=== PATIENT | female | born 1950 | race Caucasian/White ===

== ENCOUNTER → 2017-05-09 | Outpatient (CLI) | payer MEDICARE ==
--- NOTE | 2017-05-09 15:19 | Diagnostic Imaging Report ---
PROCEDURE: US Gallbladder. TECHNIQUE: Multiple Real-time grayscale images were obtained over the right upper quadrant in various projections. INDICATION: Right upper quadrant pain. COMPARISON: There are no prior studies available for comparison. FINDINGS: The liver does not appear to be enlarged. There is no focal mass involving the liver and the biliary tree is not abnormally dilated. There is no evidence for cholelithiasis or acute cholecystitis and the common bile duct is not dilated. The pancreas and right kidney are within normal limits. There is no mass or free fluid collection in the right upper quadrant. IMPRESSION: 1. There is no evidence for an acute abnormality in the right upper quadrant. 2. If clinical concern regarding an underlying abnormality of the gallbladder persists and further imaging is desired, then a Nuclear Medicine hepatobiliary scan would be recommended for further study. Dictated by: Dictated on workstation # [id number]
== END ==
LOC: RAD 13:48
PROVIDERS: ATTEND Nurse Practitioner Family
DX: R10.11 Right upper quadrant pain (principal)
CPT/HCPCS: 76705

== ENCOUNTER 2019-05-20 16:31 | Emergency (ER) | payer MEDICARE ==
[~2019-05-20] VITALS: Ht 155 cm; Wt 50.0 kg
--- NOTE | 2019-05-20 16:55 | ED Cough/URI ---
General Chief Complaint: Respiratory Problems Stated Complaint: SOA,PRESSURE IN L LARM AND HAND Source: patient Exam Limitations: no limitations History of Present Illness Date Seen by Provider: May 20, 2019 Time Seen by Provider: 16:54 Initial Comments To ER with reports of shortness of breath for about a week worse than usual today. She also has some pressure in the left forearm. No pressure in her chest. No fever no chills no cough no nausea and no diarrhea no rhinorrhea. Timing/Duration: week, getting worse Severity/Quality: moderate Associated Symptoms: cough Allergies and Home Medications Allergies Coded Allergies: No Known Drug Allergies (Unverified , 05/20/19) Patient Home Medication List Home Medication List Reviewed: Yes Review of Systems Review of Systems Constitutional: see HPI; No chills, No fever EENTM: see HPI Respiratory: see HPI, short of breath Cardiovascular: no symptoms reported; No chest pain, No edema, No Hx of Intervention, No palpitations Genitourinary: no symptoms reported Musculoskeletal: no symptoms reported, other (pressure sensation begins left forearm dorsally and extends distally to the mid hand) Skin: no symptoms reported Psychiatric/Neurological: No Symptoms Reported Hematologic/Lymphatic: No Symptoms Reported Past Jyygevh-Pljoxi-[id number] Hx Patient Social History Recent Foreign Travel: No Contact w/Someone Who Travel: No Physical Exam Vital Signs - First Documented 05/20/19 16:48 Temp 36.9 Pulse 73 Resp 20 B/P (MAP) 155/80 (105) Pulse Ox 100 O2 Delivery Room Air Capillary Refill : Height: '" Weight: lbs. oz. kg; BMI Method: General Appearance: WD/WN, no apparent distress Eyes: Bilateral Eye Normal Inspection, Bilateral Eye PERRL, Bilateral Eye EOMI HEENT: PERRL/EOMI, normal ENT inspection Respiratory: lungs clear, normal breath sounds, no respiratory distress, no accessory muscle use Cardiovascular: regular rate, rhythm, no murmur Gastrointestinal: normal bowel sounds, non tender, soft Neurologic/Psychiatric: alert, normal mood/affect, oriented x 3 Skin: warm/dry Progress/Results/Core Measures Suspected Sepsis SIRS Temperature: Pulse: Respiratory Rate: Laboratory Tests 05/20/19 17:30: White Blood Count 5.0 Blood Pressure / Mean: Laboratory Tests 05/20/19 17:30: Creatinine 0.64, INR Comment 0.9, Platelet Count 240, Total Bilirubin 0.4 Results/Orders Lab Results Laboratory Tests Test 05/20/19 17:29 05/20/19 17:30 05/20/19 19:08 Range/Units Urine Color YELLOW Urine Clarity CLEAR Urine pH 7.0 5-9 Urine Specific Arabi <=1.005 1.016-1.022 Urine Protein NEGATIVE NEGATIVE Urine Glucose (UA) NEGATIVE NEGATIVE Urine Ketones NEGATIVE NEGATIVE Urine Nitrite NEGATIVE NEGATIVE Urine Bilirubin NEGATIVE NEGATIVE Urine Urobilinogen 0.2 < = 1.0 MG/DL Urine Leukocyte Esterase TRACE H NEGATIVE Urine RBC (Auto) NEGATIVE NEGATIVE Urine RBC NONE /HPF Urine WBC 0-2 /HPF Urine Squamous Epithelial Cells 0-2 /HPF Urine Crystals NONE /LPF Urine Bacteria MODERATE H /HPF Urine Casts NONE /LPF Urine Mucus NEGATIVE /LPF Urine Culture Indicated YES White Blood Count 5.0 4.3-11.0 10^3/uL Red Blood Count 3.87 L 4.35-5.85 10^6/uL Hemoglobin 13.7 11.5-16.0 G/DL Hematocrit 40 35-52 % Mean Corpuscular Volume 104 H 80-99 FL Mean Corpuscular Hemoglobin 35 H 25-34 PG Mean Corpuscular Hemoglobin Concent 34 32-36 G/DL Red Cell Distribution Width 12.7 10.0-14.5 % Platelet Count 240 130-400 10^3/uL Mean Platelet Volume 9.4 7.4-10.4 FL Neutrophils (%) (Auto) 54 42-75 % Lymphocytes (%) (Auto) 33 12-44 % Monocytes (%) (Auto) 11 0-12 % Eosinophils (%) (Auto) 1 0-10 % Basophils (%) (Auto) 0 0-10 % Neutrophils # (Auto) 2.7 1.8-7.8 X 10^3 Lymphocytes # (Auto) 1.7 1.0-4.0 X 10^3 Monocytes # (Auto) 0.6 0.0-1.0 X 10^3 Eosinophils # (Auto) 0.1 0.0-0.3 10^3/uL Basophils # (Auto) 0.0 0.0-0.1 10^3/uL Prothrombin Time 12.6 12.2-14.7 SEC INR Comment 0.9 0.8-1.4 Activated Partial Thromboplast Time 28 24-35 SEC Sodium Level 138 135-145 MMOL/L Potassium Level 4.1 3.6-5.0 MMOL/L Chloride Level 103 98-107 MMOL/L Carbon Dioxide Level 25 21-32 MMOL/L Anion Gap 10 5-14 MMOL/L Blood Urea Nitrogen 10 7-18 MG/DL Creatinine 0.64 0.60-1.30 MG/DL Estimat Glomerular Filtration Rate > 60 BUN/Creatinine Ratio 16 Glucose Level 95 70-105 MG/DL Calcium Level 9.1 8.5-10.1 MG/DL Corrected Calcium 8.8 8.5-10.1 MG/DL Magnesium Level 2.2 1.6-2.4 MG/DL Total Bilirubin 0.4 0.1-1.0 MG/DL Aspartate Amino Transf (AST/SGOT) 20 5-34 U/L Alanine Aminotransferase (ALT/SGPT) 18 0-55 U/L Alkaline Phosphatase 52 40-136 U/L Myoglobin 28.4 10.0-92.0 NG/ML Troponin I < 0.028 < 0.028 <0.028 NG/ML B-Type Natriuretic Peptide 24.2 <100.0 PG/ML Total Protein 7.0 6.4-8.2 GM/DL Albumin 4.4 3.2-4.5 GM/DL My Orders Orders - [employer]UD [employer] Cbc With Automated Diff (05/20/19 16:33) Magnesium (05/20/19 16:33) Chest 1 View, Ap/Pa Only (05/20/19 16:33) Ekg Tracing (05/20/19 16:33) Comprehensive Metabolic Panel (05/20/19 16:33) Myoglobin Serum (05/20/19 16:33) Protime With Inr (05/20/19 16:33) Partial Thromboplastin Time (05/20/19 16:33) O2 (05/20/19 16:33) Monitor-Rhythm Ecg Trace Only (05/20/19 16:33) Lipid Panel (05/21/19 06:00) Ed Iv/Invasive Line Start (05/20/19 16:33) BNP (05/20/19 16:33) Troponin I (05/20/19 16:33) Ua Culture If Indicated (05/20/19 17:11) Urine Culture (05/20/19 17:29) Ct Angio Chest W (05/20/19 18:25) Albuterol Inhaler (Proair Hfa) (05/20/19 18:30) Iohexol Injection (Omnipaque 350 Mg/Ml 1 (05/20/19 19:00) Received Contrast (Hold Metformin- Contr (05/20/19 19:00) Ns (Ivpb) (Sodium Chloride 0.9% Ivpb Bag (05/20/19 19:00) Troponin I (05/20/19 19:08) Medications Given in ED Current Medications Medications Dose Ordered Sig/Fidencio Route Start Time Stop Time Status Last Admin Dose Admin Iohexol 100 ml ONCE ONCE IV 05/20/19 19:00 05/20/19 19:01 DC 05/20/19 18:56 75 ML Sodium Chloride 100 ml ONCE ONCE IV 05/20/19 19:00 05/20/19 19:01 DC 05/20/19 18:56 80 ML Vital Signs/I&O 05/20/19 16:48 Temp 36.9 Pulse 73 Resp 20 B/P (MAP) 155/80 (105) Pulse Ox 100 O2 Delivery Room Air Capillary Refill : Departure Impression Primary Impression: left arm pressure Additional Impression: Dyspnea Disposition: HOME, SELF-CARE Condition: Stable Departure-Patient Inst. Decision time for Depature: 19:49 Referrals: BOB BECERRA DO (PCP/Family) Primary Care Physician Patient Instructions: Shortness of Breath (Dyspnea) (DC) Add. Discharge Instructions: 1. Return to ER for any concerns or worsening symptoms 2. Follow-up with your doctor this week. Call tomorrow for an appointment. Use the inhaler 2 puffs every 4 hours as needed for shortness of breath. All discharge instructions reviewed with patient and/or family. Voiced understanding. SAUD FORTUNE APRN May 20, 2019 16:55
--- NOTE | 2019-05-20 17:27 | Diagnostic Imaging Report ---
INDICATION: Shortness of breath. TIME OF EXAM: 4:55 p.m. COMPARISON: No prior studies are available for comparison. FINDINGS: The heart size is normal. There is some mild ectasia and tortuosity of the descending thoracic aorta. The lungs are clear. No infiltrate, effusion, or pneumothorax is detected. IMPRESSION: No acute cardiopulmonary process is detected. Dictated by: Dictated on workstation # [id number]
[2019-05-20 17:35] LABS: BILIRUBIN,URINE NEGATIVE (NEGATIVE); CLARITY,URINE CLEAR; COLOR,URINE YELLOW; GLUCOSE, URINE (UA) NEGATIVE (NEGATIVE); KETONES,URINE NEGATIVE (NEGATIVE); LEUKOCYTE ESTERASE ,URINE TRACE (NEGATIVE); NITRITE,URINE NEGATIVE (NEGATIVE); PROTEIN,URINE NEGATIVE (NEGATIVE)
[2019-05-20 17:36] LABS: BASOPHILS % (AUTO) 0 % (0-10); EOSINOPHILS # (AUTO) 0.1 10^3/uL (0.0-0.3); EOSINOPHILS % (AUTO) 1 % (0-10); HEMATOCRIT 40 % (35-52); HEMOGLOBIN 13.7 G/DL (11.5-16.0); LYMPHOCYTES # (AUTO) 1.7 X 10^3 (1.0-4.0); LYMPHOCYTES % (AUTO) 33 % (12-44); MEAN CORPUSCULAR HEMOGLOBIN 35 PG (25-34); MEAN CORPUSCULAR HGB CONC 34 G/DL (32-36); MEAN CORPUSCULAR VOLUME 104 FL (80-99); MEAN PLATELET VOLUME 9.4 FL (7.4-10.4); MONOCYTES # (AUTO) 0.6 X 10^3 (0.0-1.0); MONOCYTES % (AUTO) 11 % (0-12); NEUTROPHILS # (AUTO) 2.7 X 10^3 (1.8-7.8); NEUTROPHILS % (AUTO) 54 % (42-75); PLATELET COUNT 240 10^3/uL (130-400); RED CELL DISTRIBUTION WIDTH 12.7 % (10.0-14.5)
[2019-05-20 17:56] LABS: ALANINE AMINOTRANSFERASE 18 U/L (0-55); ALBUMIN 4.4 GM/DL (3.2-4.5); ALKALINE PHOSPHATASE 52 U/L (40-136); BILIRUBIN,TOTAL 0.4 MG/DL (0.1-1.0); BUN/CREATININE RATIO 16; CALCIUM 9.1 MG/DL (8.5-10.1); CARBON DIOXIDE 25 MMOL/L (21-32); CHLORIDE 103 MMOL/L (98-107); CREATININE SERUM 0.64 MG/DL (0.60-1.30); GFR ESTIMATED > 60; GLUCOSE 95 MG/DL (70-105); MAGNESIUM 2.2 MG/DL (1.6-2.4); POTASSIUM 4.1 MMOL/L (3.6-5.0); SODIUM 138 MMOL/L (135-145)
[2019-05-20 18:22] LABS: BACTERIA,URINE MODERATE /HPF
[2019-05-20 18:24] LABS: SQUAMOUS EPITHELIAL CELL,UR 0-2 /HPF; WBC,URINE 0-2 /HPF
[2019-05-20 18:25] LABS: INR 0.9 (0.8-1.4); PROTHROMBIN TIME PATIENT 12.6 SEC (12.2-14.7)
[2019-05-20] MEDS ORDERED: RT-ALBUTEROL HFA (PROAIR HFA) 8.5 GM IH PRN (18:30)
[2019-05-20] MEDS ORDERED: HOLD METFORMIN - RECEIVED CONTRAST 20 ML VIAL IV SCH (19:00)
[2019-05-20] MEDS ORDERED: NS 100 ML (IVPB) BAG IV ONE (19:00)
[2019-05-20] MEDS ORDERED: IOHEXOL 350 MG/ML 100 ML (OMNIPAQUE 350) VIAL IV ONE (19:00)
--- NOTE | 2019-05-20 19:32 | Diagnostic Imaging Report ---
PROCEDURE: CT angiography of the chest with contrast. TECHNIQUE: Multiple contiguous axial images were obtained through the chest after uneventful bolus administration of intravenous contrast. 3D reconstructed CTA MIP acquisitions were also performed. Auto Exposure Controls were utilized during the CT exam to meet ALARA standards for radiation dose reduction. INDICATION: Shortness of air and cough. No prior studies are available for comparison. Evaluation of the pulmonary arterial system is without thromboembolism. No filling defects are seen within central, lobar or segmental branches. The thoracic aorta appears to be normal caliber. There is no pericardial or pleural fluid identified. Pulmonary parenchymal evaluation demonstrates the lungs to be clear. No parenchymal consolidation or groundglass opacities are seen. Upper abdomen is unremarkable. IMPRESSION: Unremarkable CT angiogram of the chest. Dictated by: Dictated on workstation # [id number]
[2019-05-20] MEDS ORDERED: RX-ALBUTEROL INHALER (PROAIR) 8.5 GM IH ONE (19:58)
[2019-05-20] MEDS ORDERED: RX-ALBUTEROL INHALER (PROAIR) 8.5 GM IH STA (20:05)
[2019-05-20 20:07] VITALS: BP 128/69
--- NOTE | 2019-05-22 12:06 | NUR ---
attempted to call pt twice regarding urine culture. No pharmacy on file. Letter sent.
== END 2019-05-20 20:07 | disposition home or self-care (01) ==
LOC: EDUNIT# 16:31 → ER 16:32
DX: R29.898 Other symptoms and signs involving the musculoskeletal system (principal); R06.00 Dyspnea, unspecified
CPT/HCPCS: 36415; 71045; 71275; 80053; 81000; 83735; 83874; 83880; 84484; 85025; 85610; 85730; 87077; 87088; 87186; 93005; 93041

== ENCOUNTER → 2020-10-27 | Outpatient (CLI) | payer MEDICARE ==
--- NOTE | 2020-10-27 14:30 | Diagnostic Imaging Report ---
INDICATION: Claudication. Noninvasive study performed. On the right side, ankle-brachial index was 1.14 for posterior tibial artery and dorsalis pedis. The left side, ankle-brachial index is 1.07 for posterior tibial artery and 1.25 for dorsalis pedis. Segmental pressures show symmetric waveforms. IMPRESSION: Negative noninvasive study as above. Dictated by: Dictated on workstation # [id number]
== END ==
LOC: RAD 12:45
PROVIDERS: ATTEND Family Medicine
DX: I73.9 Peripheral vascular disease, unspecified (principal)
CPT/HCPCS: 93922

== ENCOUNTER → 2021-05-06 | Outpatient (CLI) | payer MEDICARE | LOC: CARD 14:00 | PROVIDERS: ATTEND Internal Medicine Cardiovascular Disease | DX: I10 Essential (primary) hypertension (principal); I25.10 Atherosclerotic heart disease of native coronary artery without angina pectoris | CPT/HCPCS: 93306 ==

== ENCOUNTER → 2021-06-01 | Outpatient (CLI) | payer MEDICARE ==
[~2021-06-01] VITALS: Ht 152 cm; Wt 49.0 kg
[~2021-06-01] MED LIST: CATHETER FLUSH 10 ML SYR IVP PRN
[2021-06-01 13:20] VITALS: BP 128/62
--- NOTE | 2021-06-01 15:31 | Cardiology Stress Test Report ---
Stress Test Report Date of Procedure/Referring: Date of Procedure: Jun 01, 2021 PCP Carson Ware MD Admitting Physician Emiliana Becerra DO Indications: HTN Baseline Heart Rate: 82 Baseline Blood Pressure: Blood Pressure Systolic: 128 Blood Pressure Diastolic: 62 Vital Signs Date Time Temp Pulse Resp B/P (MAP) Pulse Ox O2 Delivery O2 Flow Rate FiO2 06/01/21 13:20 82 128/62 (84) 99 Baseline Vital Signs Vital Signs Date Time Temp Pulse Resp B/P (MAP) Pulse Ox O2 Delivery O2 Flow Rate FiO2 06/01/21 13:20 82 128/62 (84) 99 Baseline EKG: Baseline EKG: NSR Summary: After explaining the procedure and details to the patient, she signed the consent and was brought to the stress nuclear laboratory. Patient exercised on standard Conor protocol, EKG, heart rate and blood pressure were monitored continuously, resting and stress doses of radio tracer were injected, imaging was acquired and reviewed in the short axis, horizontal long axis and vertical long axis views Patient was able to exercise for a total of 3.30 minutes on Conor protocol, METs 4.7 Maximum heart rate 127 Maximum blood pressure 171/88 Stress EKG, Minimal nondiagnostic changes Recovery EKG, Return to baseline TID: 1.07 SSS: 5 SDS: 3 EF: 68 Conclusion: 1. Good exercise tolerance for 3 minutes and 30 seconds on standard Conor protocol, 4.7 METS achieving 86% of maximal expected heart rate 2. Appropriate heart rate and blood pressure response to exercise return to baseline during recovery 3. Minimal nondiagnostic EKG changes with exercise return to baseline during recovery 4. No significant ischemia or infarction on SPECT images 5. Normal left ventricular size, EF 68% Copy Copies To 1: EMILIANA BECERRA BASHAR J MD Jun 01, 2021 15:31
== END ==
LOC: CARD 12:15
PROVIDERS: ATTEND Internal Medicine Cardiovascular Disease
DX: I10 Essential (primary) hypertension (principal); I25.10 Atherosclerotic heart disease of native coronary artery without angina pectoris
CPT/HCPCS: 78452; 93017; A9502

== ENCOUNTER → 2021-08-25 | Outpatient (CLI) | payer MEDICARE ==
--- NOTE | 2021-08-25 15:45 | Diagnostic Imaging Report ---
PROCEDURE: CT head without contrast. TECHNIQUE: Multiple contiguous axial images were obtained through the brain without the use of intravenous contrast. Auto Exposure Controls were utilized during the CT exam to meet ALARA standards for radiation dose reduction. INDICATION: TIA, numbness, headache. COMPARISON: None available. FINDINGS: Mild atrophy. No intracranial hemorrhage. Periventricular and subcortical white matter hypodensities are present, most consistent with mild background chronic small vessel white matter ischemic disease. No definite CT evidence of an acute ischemic infarction. No intracranial mass, mass effect, midline shift, herniation, hydrocephalus, or extraaxial fluid collection. The orbits are unremarkable. The paranasal sinuses are clear. The calvarium and extracalvarial soft tissues are unremarkable. IMPRESSION: No acute intracranial abnormality with mild atrophy and mild background chronic small vessel white matter ischemic disease. Should there remain clinical concern for recent infarction, further evaluation with MRI of the brain could be considered. Dictated by: Dictated on workstation # [id number]
== END ==
LOC: RAD 15:14
PROVIDERS: ATTEND Family Medicine
DX: G45.9 Transient cerebral ischemic attack, unspecified (principal); G31.9 Degenerative disease of nervous system, unspecified; I67.82 Cerebral ischemia
CPT/HCPCS: 70450